=== PATIENT | male | born 1985 | race Asian ===

== ENCOUNTER 2018-08-06 21:55 | Emergency (ER) | payer MEDICAID ==
[~2018-08-06] VITALS: Ht 175.3 cm; Wt 102.1 kg
[2018-08-06 21:57] VITALS: BP_SYST 128
--- NOTE | 2018-08-06 23:00 | NUR ---
CALLED PT NAME IN THE WR,NO RESPONSE.
--- NOTE | 2018-08-06 23:15 | NUR ---
CALLED PT NAME IN THE WR,NO RESPONSE.
--- NOTE | 2018-08-06 23:20 | NUR ---
CALLED PT NAME IN THE WR,NO RESPONSE.
--- NOTE | 2018-08-06 23:28 | NUR ---
CALLED PT NAME IN THE WR.NO RESPONSE.
== END 2018-08-06 23:28 | disposition left against medical advice (07) ==
LOC: SED 21:55
DX: S71.111A Laceration without foreign body, right thigh, initial encounter (principal); M54.9 Dorsalgia, unspecified; R06.02 Shortness of breath; R07.89 Other chest pain; V89.2XXA Person injured in unspecified motor-vehicle accident, traffic, initial encounter; Y93.89 Activity, other specified; Y92.410 Unspecified street and highway as the place of occurrence of the external cause; Y99.8 Other external cause status